=== PATIENT | female | born 1980 | race African-American/Black ===

== ENCOUNTER 2019-10-31 13:00 | Emergency (ER) | payer MEDICARE, MEDICAID, SELFPAY ==
--- NOTE | ~2019-10-31 | US_ITS ---
EXAMINATION: US pelvic complete w TV DATE: 10/31/2019 14:03 INDICATION: Vaginal bleeding TECHNIQUE: Multiple transabdominal and endovaginal sonographic images of the pelvis were obtained. COMPARISON: 05/11/2014 FINDINGS: The uterus measures 8.6 x 6 x 4.6 cm and contains multiple fibroids. The largest is an isoe choic intramural fibroid measuring 2.7 cm. The endometrial complex measures 7 mm. The left ovary is n ot visualized however no left adnexal abnormality is seen. The right ovary measures 2.7 x 1.7 x 1.1 c m. There is normal vascular flow in the right ovary. There is no free fluid in the pelvis. IMPRESSION: 1. No sonographic correlate for the patient's symptoms. Uterine fibroids. Reviewed, dictated and finalized at [facility].
--- NOTE | 2019-10-31 13:09 | ED.FEMALEGU ---
HPI - Female Genitourinary General Chief complaint: RESIDENTIAL SALES Stated complaint: vaginal bleeding Time Seen by Provider: 10/31/19 13:02 Source: RN notes reviewed and old records reviewed History of Present Illness HPI Narrative: Patient presents emergency department from home for vaginal bleeding. Patient states that this morning she had one episode of vaginal bleeding. She states that she has had no other bleeding since that time. She states her last menstrual cycle was approximately 10 years ago after she had had a ablation done by Dr. Roberto. Patient also states she has a history of left ovary removal. She denies any blood with urination denies any fevers or chills abdominal pain or any other symptoms Related Data Allergies Allergy/AdvReac Type Severity Reaction Status Date / Time chocolate flavor Allergy Unknown Unknown Verified 10/31/19 13:13 codeine Allergy Unknown Unknown Verified 10/31/19 13:13 CHOCOLATE Allergy Unknown MOUTH Uncoded 10/31/19 13:13 PATI Review of Systems Review of Systems: Narrative: Gen.: Denies fevers or chills ENT: Denies congestion Respiratory: Denies shortness of breath or cough CV: Denies chest pain or palpitations GI: Denies abdominal pain nausea, emesis or diarrhea see HPI Musculoskeletal: Denies back pain or muscle pain Neuro: Denies numbness, tingling, weakness or focal weakness Skin: Denies rash Except as documented, all other systems reviewed and negative [facility] Past Medical History Medical History (Updated 10/31/19 @ 14:47 by Ted Rosa DO) Multiple sclerosis Surgical History Surgical History (Updated 10/31/19 @ 13:11 by Ted Rosa DO) History of left oophorectomy Social History Social History Smoking status: Never smoker Alcohol intake: current Exam Narrative: Exam Narrative: APPEARANCE: No acute distress, nontoxic, resting in bed EYES: EOMI HEENT: Normocephalic, atraumatic, OMM RESPIRATORY: No respiratory distress Clear to auscultation bilaterally with no rhonchi wheezing or rales. CARDIOVASCULAR: Regular rate and rhythm without murmurs rubs or gallops. ABDOMINAL: Soft, nontender, nondistended, no rebound or guarding : Normal external exam, minimal amount of dark maroon blood in vaginal canal, cervix closed no adnexal tenderness no cervical motion tenderness MUSCULOSKELETAl: Moves all extremities. No clubbing, cyanosis or edema. NEURO: Awake and alert. Following commands, speech normal, no focal deficits SKIN:: Warm, dry. No rashes lesions or abrasions PSYCHIATRIC: Normal affect/mood, Course Course Emergency Course: Discussed with Dr. Leyva presentation work-up. Agrees with plan for discharge to follow-up as an outpatient Discussed with patient results of workup and diagnosis. Discussed need for follow-up with primary care, proper use of medication, and reasons to return to the emergency department. Patient understands and agrees to current treatment plan Vital Signs Vital signs: Vital Signs Temperature 98.7 F 10/31/19 13:10 Pulse Rate 92 10/31/19 13:10 Respiratory Rate 20 10/31/19 13:10 Blood Pressure 127/79 10/31/19 13:10 Pulse Oximetry 99 10/31/19 13:10 Temperature 98.7 F 10/31/19 13:10 Pulse Rate 92 10/31/19 13:10 Respiratory Rate 20 10/31/19 13:10 Blood Pressure 127/79 10/31/19 13:10 Pulse Oximetry 99 10/31/19 13:10 MDM - Female Genitourinary Lab Data Result diagrams: 10/31/19 13:14 10/31/19 13:14 Labs: Lab Results 10/31/19 10/31/19 10/31/19 Range/Units 13:14 13:14 13:14 WBC 9.3 (4.5-10.0) K/mm3 RBC 5.23 (4.2-5.4) M/mm3 Hgb 13.3 (12.0-15.0) g/dL Hct 41.8 (37.0-47.0) % MCV 79.9 L (80-100) fl MCH 25.4 L (26-34) pg MCHC 31.8 L (32-36) g/dl RDW 14.2 (11.5-14.5) % Plt Count 252 (150-375) k/mm3 MPV 10.6 H (7.4-10.4) fl Immature Gran % (Auto) 0.3 (0-
[2019-10-31 13:10] VITALS: BP 127/79; PULSE 92; RESP 20; TEMP 37.1; O2SAT 99
[2019-10-31 13:27] LABS: Basophils Absolute Auto 0.1 K/mm3 (0.0-0.1); Eosinophils Absolute Auto 0.2 K/mm3 (0-0.3); Eosinophils Percent Auto 1.9 % (0-4.4); Hematocrit 41.8 % (37.0-47.0); Hemoglobin 13.3 g/dL (12.0-15.0); Immature Granulocyte Absolute 0.03 K/mm3 (0.00-0.031); Immature Granulocyte Percent A 0.3 % (0-0.5); Lymphocytes Absolute Auto 2.28 K/mm3 (0.9-3.2); Lymphocytes Percent Auto 24.6 % (18.3-44.2); Mean Corpuscular HGB Conc 31.8 g/dl (32-36); Mean Corpuscular Hemoglobin 25.4 pg (26-34); Mean Corpuscular Volume 79.9 fl (80-100); Mean Platelet Volume 10.6 fl (7.4-10.4); Monocytes Absolute Auto 1.8 K/mm3 (0.1-0.6); Monocytes Percent Auto 19.7 % (2.6-8.5); Neutrophils Absolute Auto 4.9 K/mm3 (1.3-6.7); Neutrophils Percent Auto 52.5 % (45.5-73.1); Platelet Count Result 252 k/mm3 (150-375); Red Blood Count 5.23 M/mm3 (4.2-5.4); Red Cell Distribution Width 14.2 % (11.5-14.5); White Blood Count 9.3 K/mm3 (4.5-10.0)
[2019-10-31 13:34] LABS: Add Urine Microscopic? YES; Appearance Urine Clear (Clear); Bacteria Urine Trace /hpf; Bilirubin Urine Negative (Negative); Blood Urine Negative (Negative); Color Urine Yellow (Yellow); Glucose Urine UA Negative (Negative); Ketones Urine Negative (Negative); Leukocyte Esterase Ur Negative LEU/UL (Negative); Mucus Urine Rare /lpf; Nitrate Urine Positive (Negative); Protein Urine Negative (Negative); Specific Grav Ur 1.017 (1.001-1.035); Squamous Epithelial Cell Urine Rare /hpf (Few); Urobilinogen Urine Negative mg/dL (<2.0); WBC Urine 0-3 /hpf
[2019-10-31 13:45] LABS: Blood Urea Nitrogen 14 mg/dL (7-17); Carbon Dioxide 21 mmol/L (22-30); Chloride 107 mmol/L (98-107); Estimated CRCL calculation 126 ml/min; Estimated Glomerular Filt Rate > 60; Glucose 80 mg/dL (65-105); Sodium 139 mmol/L (137-145)
[2019-10-31 14:53] VITALS: BP 128/76; PULSE 93; RESP 16; O2SAT 98
== END 2019-10-31 14:53 | disposition home or self-care (01) ==
PROVIDERS: Emergency Provider Emergency Medicine; PCP Family Medicine
DX: N93.8 Other specified abnormal uterine and vaginal bleeding (principal); D25.9 Leiomyoma of uterus, unspecified; G35 Multiple sclerosis
CPT/HCPCS: 36415; 51701; 76830; 76856; 80048; 81001; 81025; 85025; 99284

== ENCOUNTER 2020-01-05 18:29 | Emergency (ER) | payer MEDICARE, MEDICAID, SELFPAY ==
[2020-01-05 18:32] VITALS: BP 148/74; PULSE 97; RESP 20; TEMP 36.7; O2SAT 99
[2020-01-05] MEDS: TETANUS,DIPHTHERIA,AC PERTUSSIS ADULT (0.5 ML) BOOSTRIX IM (18:47)
--- NOTE | 2020-01-05 19:24 | ED.GENADULT ---
HPI - General Adult General Chief complaint: Wound/Laceration Stated complaint: laceration fingers Time Seen by Provider: 01/05/20 18:31 Source: patient Mode of arrival: ambulatory Limitations: no limitations History of Present Illness HPI narrative: Patient is a 39-year-old female who presents with laceration to the left middle digit that occurred just prior to arrival patient notes that her tetanus is not up-to-date patient notes minimal pain worse with activity and movement denies radicular symptoms or paresthesias laceration occurred just prior to arrival while throwing away piece of glass Related Data Home Medications Medication Instructions Recorded Confirmed No Home Medications 01/05/20 01/05/20 Allergies Allergy/AdvReac Type Severity Reaction Status Date / Time chocolate flavor Allergy Unknown Unknown Verified 10/31/19 13:13 codeine Allergy Unknown Unknown Verified 10/31/19 13:13 CHOCOLATE Allergy Unknown MOUTH Uncoded 10/31/19 13:13 SWELLS Review of Systems Review of Systems: All systems reviewed & are unremarkable except as noted in HPI and below PMFSH Past Medical History Medical History Multiple sclerosis Surgical History Surgical History History of left oophorectomy Social History Social History Smoking status: Never smoker Alcohol intake: current Exam Narrative: Exam Narrative: GENERAL: Well-appearing, well-nourished, and in no acute distress. HEAD: Normocephalic, atraumatic. EYES: PERRLA and EOMI. ENT: Nares clear, no rhinorrhea or epistaxis. Mucous membranes moist. EXTREMITIES: Normal range of motion. No edema. SKIN: Warm, dry, no rash. 1.5 cm irregular flap laceration of the palmar aspect of the mid left mid digit NEURO: No focal deficits. Alert and oriented x3. PSYCH: Normal mood and affect. Course Vital Signs Vital signs: Vital Signs Temperature 98.0 F 01/05/20 18:32 Pulse Rate 97 01/05/20 18:32 Respiratory Rate 20 01/05/20 18:32 Blood Pressure 148/74 H 01/05/20 18:32 Pulse Oximetry 99 01/05/20 18:32 Temperature 98.0 F 01/05/20 18:32 Pulse Rate 97 01/05/20 18:32 Respiratory Rate 20 01/05/20 18:32 Blood Pressure 148/74 H 01/05/20 18:32 Pulse Oximetry 99 01/05/20 18:32 Procedures Laceration Laceration 1: Date: 01/05/20 Time: 20:05 Site: upper extremity Side (If applicable): left Size (cm): 1.5 Description: flap and irregular Depth: simple, single layer Local Anesthetic: lidocaine 1% Pre-repair: wound explored and irrigated ====== Skin Level ====== Skin layer closed with: prolene Size (cm): 5-0 Number of sutures: 4 ====== Subcutaneous Layer ====== ====== Muscle Layer ====== ====== Tendon Layer ====== Dressing: Antibiotic ointment 4 x 4 and Coban placed post procedure Neurovascularly intact pre-and post procedure Medical Decision Making MDM Narrative Medical decision making narrative: Patients injury or pain is consistent with musculoskeletal etiology. No signs of neurological or vascular compromise on exam. Compartments and tisues are soft without signs of compartment syndrome. Pain is felt appropriate for further evaluation on an outpatient basis. Provided with reasons to return Vital Signs Vital Signs: Vital Signs Temperature 98.0 F 01/05/20 18:32 Pulse Rate 97 01/05/20 18:32 Respiratory Rate 20 01/05/20 18:32 Blood Pressure 148/74 H 01/05/20 18:32 Pulse Oximetry 99 01/05/20 18:32 Temperature 98.0 F 01/05/20 18:32 Pulse Rate 97 01/05/20 18:32 Respiratory Rate 20 01/05/20 18:32 Blood Pressure 148/74 H 01/05/20 18:32 Pulse Oximetry 99 01/05/20 18:32 Discharge Plan Discharge Clinical Impression: Lacerati
[2020-01-05 20:22] VITALS: BP 132/75; PULSE 88; RESP 19; O2SAT 100
== END 2020-01-05 20:23 | disposition home or self-care (01) ==
PROVIDERS: Emergency Provider Emergency Medicine; PCP Family Medicine
DX: S61.213A Laceration without foreign body of left middle finger without damage to nail, initial encounter (principal); G35 Multiple sclerosis; Z23 Encounter for immunization; W25.XXXA Contact with sharp glass, initial encounter
CPT/HCPCS: 12001; 90471; 90715; 99282

== ENCOUNTER 2021-01-15 20:01 | Emergency (ER) | payer MEDICARE, MEDICAID, SELFPAY ==
--- NOTE | 2021-01-15 21:00 | PC.NURSE ---
Pt. called twice for triage. no answer
== END 2021-01-15 21:21 | disposition left against medical advice (07) ==
PROVIDERS: PCP Family Medicine
DX: Z53.21 Procedure and treatment not carried out due to patient leaving prior to being seen by health care provider (principal)
CPT/HCPCS: 99199

== ENCOUNTER 2021-09-11 21:47 | Emergency (ER) | payer MEDICARE, MEDICAID, SELFPAY ==
[2021-09-11 21:50] VITALS: BP 141/83; PULSE 79; RESP 16; TEMP 36.5; O2SAT 100
--- NOTE | 2021-09-11 22:56 | ED.DENTAL ---
HPI - Dental/Oral General Chief complaint: Skin/Abscess/Foreign Body Stated complaint: dental Time Seen by Provider: 09/11/21 22:11 Source: patient Mode of arrival: ambulatory Limitations: no limitations History of Present Illness HPI Narrative: 41-year-old female with complaints of dental pain to area around tooth 30. Patient states she noticed the pain this morning. Has tried ibuprofen without relief. Patient denies any purulent drainage, difficulty swallowing, shortness of breath, or fevers. Related Data Allergies Allergy/AdvReac Type Severity Reaction Status Date / Time chocolate flavor Allergy Unknown Unknown Verified 09/11/21 21:53 codeine Allergy Unknown Unknown Verified 09/11/21 21:53 CHOCOLATE Allergy Unknown MOUTH Uncoded 09/11/21 22:13 PATI Review of Systems Review of Systems: CONSTITUTIONAL: Denies fever, chills, or sweats. EYES: Denies visual changes, redness, or discharge. ENT: Pain and swelling to tooth 30. Denies rhinorrhea, congestion, sore throat, or otalgia. CARDIOVASCULAR: Denies chest pain, palpitations, or edema. RESPIRATORY: Denies cough or dyspnea. GASTROINTESTINAL: Denies abdominal pain, nausea, vomiting, or diarrhea. GENITOURINARY: Denies dysuria or hematuria. SKIN: Denies rash or itching. MUSCULOSKELETAL: Denies back pain, joint pain, or myalgia. NEUROLOGIC: Denies headache, numbness, dizziness, or weakness. PSYCHIATRIC: Denies anxiety or depression. PMFSH Past Medical History Medical History Multiple sclerosis Surgical History Surgical History History of left oophorectomy Social History Social History Smoking status: Never smoker Alcohol intake: current Exam Narrative: GENERAL: Well-appearing, well-nourished, and in no acute distress. HEAD: Normocephalic, atraumatic. EYES: PERRLA and EOMI. ENT: Nares clear, no rhinorrhea or epistaxis. Mucous membranes moist. Oropharynx without tonsillar hypertrophy exudate or other lesions. Bilateral TMs pearly bowen nonbulging. Tooth 30 with gum swelling, no drainage noted, and tenderness. NECK: Supple. No adenopathy or masses. No carotid bruits or JVD CHEST: Clear to auscultation. No respiratory distress. No wheezes rales or rhonchi HEART: Regular rate and rhythm. No murmur heard. Normal peripheral pulses. ABDOMEN: Soft, nontender, nondistended, normal active bowel sounds. EXTREMITIES: Normal range of motion. No edema. SKIN: Warm, dry, no rash. NEURO: No focal deficits. Alert and oriented x3. PSYCH: Normal mood and affect. Course Vital Signs Vital signs: Vital Signs Temperature 36.5 C 09/11/21 21:50 Pulse Rate 79 09/11/21 21:50 Respiratory Rate 16 09/11/21 21:50 Blood Pressure 141/83 H 09/11/21 21:50 Pulse Oximetry 100 09/11/21 21:50 Temperature 36.5 C 09/11/21 21:50 Pulse Rate 79 09/11/21 21:50 Respiratory Rate 16 09/11/21 21:50 Blood Pressure 141/83 H 09/11/21 21:50 Pulse Oximetry 100 09/11/21 21:50 MDM - Dental/Oral Differential Diagnosis Differential diagnosis: Likely gingival abscess, dental caries, toothache and dental abscess Medical Records Attestation: I reviewed the patient's medical records. Discharge Plan Discharge Clinical Impression: Dental abscess Patient Disposition: Home, Self-Care Condition: Stable Instructions: Antibiotic Form Additional Instructions: take medication as prescrived. Use ibuprofen 800 mg every 8 hours as needed for pain. follow up with dentist. Prescriptions: New penicillin V potassium 500 mg tablet 500 mg PO Q6H 10 Days Qty: 40 RF: 0 Follow-up/Referrals: PHYSICIAN NOT ON STAFF,NONSTAFF [Non-Staff] - 3 Days Time of Disposition: 23:20
[2021-09-11] MEDS: PENICILLIN V POTASSIUM 250 MG TABLET 500 MG PO (23:27)
[2021-09-11] MEDS: KETOROLAC (*BKC) 60 MG/2 ML VIAL IM (23:32)
== END 2021-09-11 23:47 | disposition home or self-care (01) ==
LOC: ANHED 23:42
PROVIDERS: Emergency Provider Nurse Practitioner Family
DX: K04.7 Periapical abscess without sinus (principal); G35 Multiple sclerosis
CPT/HCPCS: 96372; 99283; A9270; J1885

== ENCOUNTER 2021-12-23 06:13 | Emergency (ER) | payer MEDICARE, MEDICAID, SELFPAY ==
[2021-12-23 06:28] VITALS: BP 123/90; PULSE 88; RESP 20; TEMP 36.7; O2SAT 97
--- NOTE | 2021-12-23 07:47 | ED.GENADULT ---
HPI - General Adult General Chief complaint: Anxiety Stated complaint: anxiety Time Seen by Provider: 12/23/21 06:50 History of Present Illness HPI narrative: 41-year-old female presenting to the emergency department for evaluation of dental pain for the last few days and worsening anxiety. Patient states the dental pain has been worsening over the last few days. Patient indicates her lower front teeth as the source of the pain. Patient reports that she had previously been taking medications for anxiety be due to moving and no longer having a primary care physician that she stopped taking medications for anxiety. Patient did request information for a primary care physician for follow-up. Patient denies any homicidal or suicidal ideation Related Data Allergies Allergy/AdvReac Type Severity Reaction Status Date / Time chocolate flavor Allergy Unknown Unknown Verified 12/23/21 06:34 codeine Allergy Unknown Unknown Verified 12/23/21 06:34 Penicillins Allergy Other Verified 12/23/21 06:34 CHOCOLATE Allergy Unknown MOUTH Uncoded 09/11/21 22:13 SWELLS Review of Systems Review of Systems: CONSTITUTIONAL: Denies fever, chills, or sweats. EYES: Denies visual changes, redness, or discharge. ENT: Dental pain CARDIOVASCULAR: Denies chest pain, palpitations, or edema. RESPIRATORY: Denies cough or dyspnea. GASTROINTESTINAL: Denies abdominal pain, nausea, vomiting, or diarrhea. GENITOURINARY: Denies dysuria or hematuria. SKIN: Denies rash or itching. MUSCULOSKELETAL: Denies back pain, joint pain, or myalgia. NEUROLOGIC: Denies headache, numbness, or weakness. PSYCHIATRIC: See HPI PMFSH Past Medical History Medical History Multiple sclerosis Surgical History Surgical History History of left oophorectomy Social History Social History Smoking status: Never smoker Alcohol intake: current Substance use type: marijuana Exam Narrative: APPEARANCE: Well appearing, no pain, no distress, well-nourished. HEAD: normocephalic, atraumatic. Irritation of the gums on front incisors EYES: PERRLA/EOMI, conjunctivae clear. NOSE: Normal no drainage THROAT: Pharynx clear, no exudate. NECK: Supple. No adenopathy, no masses. RESPIRATORY: Airway patent, respirations nonlabored. Clear to auscultation bilaterally, no rales, rhonchi, wheezing. CARDIOVASCULAR: Regular rate and rhythm without murmurs rubs or gallops. NEURO: Alert. Cranial nerves II through XII intact. Grossly intact SKIN: Warm, dry. Normal Color PSYCHIATRIC: Anxious affect Course Vital Signs Vital signs: Vital Signs Temperature 98.0 F 12/23/21 06:28 Pulse Rate 88 12/23/21 06:28 Respiratory Rate 20 12/23/21 06:28 Blood Pressure 123/90 12/23/21 06:28 Pulse Oximetry 97 12/23/21 06:28 Oxygen Delivery Room Air 12/23/21 06:28 Temperature 98.0 F 12/23/21 06:28 Pulse Rate 88 12/23/21 06:28 Respiratory Rate 20 12/23/21 06:28 Blood Pressure 123/90 12/23/21 06:28 Pulse Oximetry 97 12/23/21 06:28 Oxygen Delivery Room Air 12/23/21 06:28 Medical Decision Making Vital Signs Vital Signs: Vital Signs Temperature 98.0 F 12/23/21 06:28 Pulse Rate 88 12/23/21 06:28 Respiratory Rate 20 12/23/21 06:28 Blood Pressure 123/90 12/23/21 06:28 Pulse Oximetry 97 12/23/21 06:28 Oxygen Delivery Room Air 12/23/21 06:28 Temperature 98.0 F 12/23/21 06:28 Pulse Rate 88 12/23/21 06:28 Respiratory Rate 20 12/23/21 06:28 Blood Pressure 123/90 12/23/21 06:28 Pulse Oximetry 97 12/23/21 06:28 Oxygen Delivery Room Air 12/23/21 06:28 Discharge Plan Discharge Clinical Impression: Acute anxiety, Pain, dental Patient Disposition: Home, Self-Care Condition: Stable Instructions: Antibiotic Form, Toothache (ED), Anxiety (ED) Additional
== END 2021-12-23 08:20 | disposition home or self-care (01) ==
PROVIDERS: Emergency Provider Emergency Medicine
DX: K08.89 Other specified disorders of teeth and supporting structures (principal); F41.9 Anxiety disorder, unspecified; G35 Multiple sclerosis; Z90.721 Acquired absence of ovaries, unilateral
CPT/HCPCS: 99283

== ENCOUNTER 2022-01-06 21:48 | Emergency (ER) | payer MEDICARE, SELFPAY ==
[2022-01-06] VITALS (12 sets, daily range): BP systolic 112–135; BP diastolic 88–97; PULSE 72–95; RESP 16–23; TEMP 36.5; O2SAT 98–100
--- NOTE | ~2022-01-06 | CT_ITS ---
EXAMINATION: CT abdomen pelvis w con DATE: 01/07/2022 00:06 INDICATION: Abdominal pain, nausea and vomiting TECHNIQUE: Computed tomography (CT) of the abdomen and pelvis was performed with 100 CC Omnipaque 300 intravenous contrast. Automated exposure control and iterative reconstruction technique were employe d. Exam dose: 189.09 mGy-cm total exam DLP. COMPARISON: 10/31/2019 pelvic ultrasound 05/15/2013 CT abdomen pelvis FINDINGS: There is mild discoid atelectasis or scarring of the middle lobe and minimal dependent bila teral lower lobe atelectasis. Normal heart size. No pericardial or pleural effusion. The liver, gallbladder, bile ducts, pancreas, pancreatic duct and spleen are unremarkable. Normal morphology of the adrenal glands. Approximately 1.3 cm lower pole left renal cyst. Occasional right renal cysts measuring up to 5 mm. Normal caliber of the abdominal aorta. No intraperitoneal or retroperitoneal or pelvic mass lesion or adenopathy or ascites. Multiple uterine fibroids, measuring up to 2.3 cm diameter. The urinary bladder is unremarkable. There is thickening of the wall of the gastric antrum; which may be related to gastritis or peptic ul cer disease; consider endoscopic correlation. Normal appendix. No bowel obstruction or intraperitoneal free air. Small fat-containing umbilical hernia. Included skeletal structures are unremarkable. IMPRESSION: Thickening of the wall of the gastric antrum; differential diagnosis includes gastritis o r peptic ulcer disease; consider endoscopic correlation. Normal appendix Multiple uterine fibroids Bilateral renal cysts Reviewed, dictated and finalized at [facility]. Reviewed, dictated and finalized at [facility]. IMPRESSION: Thickening of the wall of the gastric antrum; differential diagnosi s includes gastritis or peptic ulcer disease; consider endoscopic correlation. Normal appendix Multiple uterine fibroids Bilateral renal cysts
--- NOTE | 2022-01-06 22:15 | ED.NAVMDI ---
HPI - Nausea/Vomiting/Diarrhea General Chief complaint: Nausea/Vomiting/Diarrhea <SWETHA Martin Last Filed: 01/07/22 01:09> Stated complaint: emesis x1 <SWETHA Martin Last Filed: 01/07/22 01:09> Time Seen by Provider: 01/06/22 21:53 <SWETHA Martin Last Filed: 01/07/22 01:09> Source: patient <Gertrude SWETHA Corcoran Last Filed: 01/07/22 01:09> Mode of arrival: EMS <SWETHA Martin Last Filed: 01/07/22 01:09> Limitations: no limitations <SWETHA Martin Last Filed: 01/07/22 01:09> History of Present Illness HPI Narrative: This is a 41-year-old female that presents to the emergency department for nausea vomiting. Reports several episodes of nausea and vomiting today. Also reports some diarrhea. Reports intermittent fevers. Denies hematochezia or dysuria. <SWETHA Martin Last Filed: 01/07/22 01:09> Related Data Allergies/Adverse reactions: Allergies Allergy/AdvReac Type Severity Reaction Status Date / Time chocolate flavor Allergy Unknown Unknown Verified 12/23/21 06:34 codeine Allergy Unknown Unknown Verified 12/23/21 06:34 Penicillins Allergy Other Verified 12/23/21 06:34 CHOCOLATE Allergy Unknown MOUTH Uncoded 09/11/21 22:13 SWELLS <SWETHA Martin Last Filed: 01/07/22 01:09> Review of Systems Review of Systems: CONSTITUTIONAL: Reports fever GASTROINTESTINAL: Reports abdominal pain, nausea, vomiting, and diarrhea. GENITOURINARY: Denies dysuria <SWETHA Martin Last Filed: 01/07/22 01:09> All systems reviewed & are unremarkable except as noted in HPI and below <SWETHA Martin Last Filed: 01/07/22 01:09> PMFSH Past Medical History Medical History: Medical History Multiple sclerosis <Gertrude Humphreys PA-C - Last Filed: 01/07/22 01:09> Surgical History Surgical History: Surgical History History of left oophorectomy <Gertrude Humphreys PA-C - Last Filed: 01/07/22 01:09> Social History Social History: Social History Smoking status: Never smoker Alcohol intake: current Substance use type: marijuana <Gertrude Humphreys PA-C - Last Filed: 01/07/22 01:09> Exam Narrative: GENERAL: Well-appearing, well-nourished, and in no acute distress. HEAD: Normocephalic, atraumatic. EYES: EOMI. CHEST: Clear to auscultation. No respiratory distress. No wheezes rales or rhonchi HEART: Regular rate and rhythm. No murmur heard. Normal peripheral pulses. ABDOMEN: Soft, nondistended, normal active bowel sounds. Mild tenderness to palpation in the epigastrium, without guarding. No CVA tenderness EXTREMITIES: Normal range of motion. No edema. SKIN: Warm, dry, no rash. NEURO: No focal deficits. Alert and oriented x3. PSYCH: Normal mood and affect <Gertrude Humphreys PA-C - Last Filed: 01/07/22 01:09> Course CONSUMER LOAN PROCESSOR/PA Physician Supervision For this patient encounter, I reviewed the CONSUMER LOAN PROCESSOR or PA documentation, treatment plan, and medical decision making <Garett Aguilera MD - Last Filed: 01/07/22 04:11> Vital Signs Vital signs: Vital Signs Temperature 97.7 F 01/06/22 21:51 Pulse Rate 95 01/06/22 21:51 Respiratory Rate 18 01/06/22 21:51 Blood Pressure 121/91 H 01/06/22 21:51 Pulse Oximetry 100 01/06/22 21:51 Oxygen Delivery Room Air 01/06/22 21:51 Temperature 97.7 F 01/06/22 21:51 Pulse Rate 74 01/07/22 01:22 Respiratory Rate 12 01/07/22 01:22 Blood Pressure 127/93 H 01/07/22 01:22 Pulse Oximetry 100 01/07/22 01:22 Oxygen Delivery Room Air 01/06/22 21:51 <Gertrude Humphreys PA-C - Last Filed: 01/07/22 01:09> Vital Signs Temperature 97.7 F 01/06/22 21:51 Pulse Rate 95 01/06/22 21:51 Respiratory Rate 18 01/06/22 21:51 Blood Pressure 121/91 H 01/06
[2022-01-06] MEDS: ONDANSETRON INJ 4 MG/2 ML VIAL IV PUSH (22:29)
[2022-01-06] MEDS: SODIUM CHLORIDE 0.9% IV 1,000 ML 999 ML IV CONT (22:29)
[2022-01-06] MEDS: FAMOTIDINE 20 MG/2 ML VIAL IV PUSH (22:29)
[2022-01-06 22:43] LABS: Basophils Absolute Auto 0.1 K/mm3 (0.0-0.1); Basophils Percent Auto 0.8 % (0.2-1.2); Eosinophils Absolute Auto 0.2 K/mm3 (0-0.3); Eosinophils Percent Auto 2.5 % (0-4.4); Hematocrit 38.1 % (37.0-47.0); Hemoglobin 12.2 g/dL (12.0-15.0); Immature Granulocyte Absolute 0.02 K/mm3 (0.00-0.031); Immature Granulocyte Percent A 0.3 % (0-0.5); Lymphocytes Absolute Auto 2.36 K/mm3 (0.9-3.2); Lymphocytes Percent Auto 31.6 % (18.3-44.2); Mean Corpuscular Hemoglobin 25.2 pg (26-34); Mean Corpuscular Volume 78.7 fl (80-100); Mean Platelet Volume 10.3 fl (7.4-10.4); Monocytes Absolute Auto 1.3 K/mm3 (0.1-0.6); Monocytes Percent Auto 17.4 % (2.6-8.5); Neutrophils Absolute Auto 3.6 K/mm3 (1.3-6.7); Neutrophils Percent Auto 47.4 % (45.5-73.1); Platelet Count Result 234 k/mm3 (150-375); Red Blood Count 4.84 M/mm3 (4.2-5.4); Red Cell Distribution Width 14.2 % (11.5-14.5); White Blood Count 7.5 K/mm3 (4.5-10.0)
[2022-01-06 22:52] LABS: Alanine Aminotransferase 18 U/L (6-35); Albumin Level 3.9 g/dL (3.5-5.1); Alkaline Phosphatase 51 U/L (38-126); Anion Gap 10 mmol/L (8-16); Aspartate Amino Transferase 26 U/L (14-36); Bilirubin,Total 0.1 mg/dL (0.2-1.3); Blood Urea Nitrogen 9 mg/dL (7-17); Calcium 8.3 mg/dL (8.4-10.2); Carbon Dioxide 21 mmol/L (22-30); Chloride 109 mmol/L (98-107); Estimated CRCL calculation 86 ml/min; Estimated Glomerular Filt Rate > 60; Glucose 93 mg/dL (65-110); Lipase 49 U/L (23-300); Potassium 3.6 mmol/L (3.4-5.0); Sodium 140 mmol/L (137-145)
[2022-01-06 23:37] LABS: Appearance Urine Clear (Clear); Bilirubin Urine Negative (Negative); Blood Urine Negative (Negative); Color Urine Yellow (Yellow); Glucose Urine UA Negative (Negative); Ketones Urine Negative (Negative); Leukocyte Esterase Ur 2+ LEU/UL (Negative); Nitrate Urine Negative (Negative); Protein Urine Negative (Negative); Specific Grav Ur 1.015 (1.001-1.035); Urobilinogen Urine 0.2 mg/dL (<2.0)
[2022-01-06 23:43] LABS: Bacteria Urine Trace /hpf; Mucus Urine Rare /lpf; RBC Urine 0-2 /hpf (0-2); Squamous Epithelial Cell Urine Few /hpf (Few)
[2022-01-06 23:44] LABS: Add Urine Microscopic? YES
--- NOTE | 2022-01-06 23:52 | PC.NURSE ---
Patient taken to CT via stretcher.
[2022-01-07] VITALS (7 sets, daily range): BP systolic 121–127; BP diastolic 91–93; PULSE 74; RESP 12; O2SAT 98–100
[2022-01-07 00:22] LABS: Influenza A QL RT-PCR Negative (Negative); Influenza B QL RT-PCR Negative (Negative); SARS-CoV-2 RNA PCR Negative
[2022-01-07] MEDS: LORazepam (*CRX) 0.5 MG TABLET PO (01:23)
== END 2022-01-07 01:32 | disposition home or self-care (01) ==
PROVIDERS: Physician Assistant; Emergency Provider Emergency Medicine
DX: K29.00 Acute gastritis without bleeding (principal); Z20.822 Contact with and (suspected) exposure to COVID-19; G35 Multiple sclerosis; R82.998 Other abnormal findings in urine
CPT/HCPCS: 36415; 74177; 80053; 81001; 81025; 83690; 85025; 87086; 87088; 87502; 96361; 96374; 96375; 99284; A9270; C9803; J2405; J7030; Q9967; U0003; U0005

== ENCOUNTER 2022-01-19 12:55 | Emergency (ER) | payer MEDICARE, SELFPAY ==
[2022-01-19 12:58] VITALS: BP 113/84; PULSE 103; RESP 16; TEMP 36.7; O2SAT 97
--- NOTE | 2022-01-19 13:34 | PC.NURSE ---
received case number from [facility] [id number]
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
[2022-01-19 15:08] LABS: Alanine Aminotransferase 20 U/L (6-35); Albumin Level 4.4 g/dL (3.5-5.1); Alkaline Phosphatase 52 U/L (38-126); Anion Gap 8 mmol/L (8-16); Aspartate Amino Transferase 26 U/L (14-36); Bilirubin,Total 0.2 mg/dL (0.2-1.3); Blood Urea Nitrogen 13 mg/dL (7-17); Calcium 8.9 mg/dL (8.4-10.2); Carbon Dioxide 25 mmol/L (22-30); Chloride 107 mmol/L (98-107); Estimated CRCL calculation 81 ml/min; Estimated Glomerular Filt Rate > 60; Glucose 92 mg/dL (65-110); Potassium 4.2 mmol/L (3.4-5.0); Sodium 140 mmol/L (137-145)
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
--- NOTE | 2022-01-19 16:07 | PC.NURSE ---
no shelters available at this time. [facility] is attempting to get a hotel room for the night. still in progress
[2022-01-19 16:37] LABS: Appearance Urine Clear (Clear); Bilirubin Urine Negative (Negative); Blood Urine Negative (Negative); Glucose Urine UA Negative (Negative); Ketones Urine Negative (Negative); Leukocyte Esterase Ur Negative LEU/UL (Negative); Nitrate Urine Negative (Negative); Protein Urine Negative (Negative); Urobilinogen Urine 0.2 mg/dL (<2.0); pH Urine 6.5 (5.0-9.0)
[2022-01-19 16:42] LABS: Add Urine Microscopic? NO; Color Urine Light Yellow (Yellow)
[2022-01-19] MEDS: AZITHROMYCIN 250 MG TABLET 1000 MG PO (16:57)
[2022-01-19] MEDS: metroNIDAZOLE 250 MG TABLET 500 MG PO (16:59)
[2022-01-19] MEDS: levonorgestreL 1.5 MG TABLET PO (16:59)
[2022-01-19] MEDS: ONDANSETRON HCL ODT 4 MG TABLET PO (17:00)
[2022-01-19] MEDS: LIDOCAINE HCL 1% LOCAL INJ 20 ML VIAL 2.1 ML XX (17:01)
[2022-01-19] MEDS: cefTRIAXone 1 GM VIAL 0.5 GM IM (17:01)
[2022-01-19 18:08] VITALS: BP 114/74; PULSE 99; RESP 20; TEMP 36.7; O2SAT 99
[2022-01-19 18:08] LABS: HIV 1/2 Ab P24 Ag Result Reactive (Negative)
[2022-01-19 18:10] LABS: HIVc Retest 2 0.89
[2022-01-21 07:33] LABS: Rapid Plasma Reagin Non-Reactive (NonReactive)
[2022-01-22 18:06] LABS: HIV 1 RNA PCR Not Detected Copies/mL; HIV 1 RNA PCR Not Detected Log cps/mL
[2022-01-23 16:27] LABS: HIV DNA PCR (Qual) Not Detected (Not Detected)
== END 2022-01-19 18:18 | disposition home or self-care (01) ==
LOC: ANHED 17:30
PROVIDERS: Emergency Provider Preventive Medicine Aerospace Medicine
DX: Z04.41 Encounter for examination and observation following alleged adult rape (principal); A59.9 Trichomoniasis, unspecified; Z11.4 Encounter for screening for human immunodeficiency virus [HIV]; G35 Multiple sclerosis; Z90.721 Acquired absence of ovaries, unilateral
CPT/HCPCS: 36415; 80053; 81003; 81025; 86592; 86701; 86702; 86703; 87389; 87491; 87535; 87536; 87591; 87808; 87900; 87901; 96372; 99285; A9270; G0432; J0696

== ENCOUNTER 2022-12-08 15:10 | Emergency (ER) | payer MEDICARE, SELFPAY ==
[2022-12-08 15:26] VITALS: BP 127/77; PULSE 106; RESP 18; TEMP 37.7; O2SAT 100
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
[2022-12-08 16:38] LABS: Strep Group A RT-PCR NOT DETECTED (Negative)
[2022-12-08 16:48] LABS: Influenza A QL RT-PCR Negative (Negative); Influenza B QL RT-PCR Negative (Negative); SARS-CoV-2 RNA PCR Negative (Negative)
[2022-12-08] MEDS: IBUPROFEN SUSPENSION 200 MG/10 ML UDC 600 MG PO (16:57)
[2022-12-08 17:31] VITALS: BP 133/87; PULSE 84; TEMP 36.7; O2SAT 100
== END 2022-12-08 17:38 | disposition home or self-care (01) ==
PROVIDERS: Emergency Provider Physician Assistant
DX: J02.8 Acute pharyngitis due to other specified organisms (principal); G35 Multiple sclerosis; F12.90 Cannabis use, unspecified, uncomplicated; Z20.822 Contact with and (suspected) exposure to COVID-19
CPT/HCPCS: 87636; 87651; 96372; 99283; A9270; J1100

== ENCOUNTER 2024-01-02 14:18 | Emergency (ER) | payer MEDICARE, SELFPAY ==
[2024-01-02 14:21] VITALS: BP 125/96; PULSE 110; RESP 20; TEMP 36.6; O2SAT 97
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
[2024-01-02 15:33] LABS: Basophils Absolute Auto 0.1 K/mm3 (0.0-0.1); Basophils Percent Auto 0.9 % (0.2-1.2); Eosinophils Absolute Auto 0.2 K/mm3 (0-0.3); Eosinophils Percent Auto 1.8 % (0-4.4); Hematocrit 42.5 % (37.0-47.0); Hemoglobin 13.8 g/dL (12.0-15.0); Immature Granulocyte Absolute 0.03 K/mm3 (0.00-0.031); Immature Granulocyte Percent A 0.4 % (0-0.5); Lymphocytes Absolute Auto 2.76 K/mm3 (0.9-3.2); Lymphocytes Percent Auto 33.7 % (18.3-44.2); Mean Corpuscular HGB Conc 32.5 g/dl (32-36); Mean Corpuscular Hemoglobin 26.5 pg (26-34); Mean Corpuscular Volume 81.7 fl (80-100); Mean Platelet Volume 9.9 fl (7.4-10.4); Monocytes Absolute Auto 1.5 K/mm3 (0.1-0.6); Monocytes Percent Auto 18.1 % (2.6-8.5); Neutrophils Absolute Auto 3.7 K/mm3 (1.3-6.7); Neutrophils Percent Auto 45.1 % (45.5-73.1); Platelet Count Result 268 k/mm3 (150-375); White Blood Count 8.2 K/mm3 (4.5-10.0)
--- NOTE | 2024-01-02 15:34 | PC.NURSE ---
Addendum entered by Leeann Degroot RN 01/02/24 15:35: Pt ambulated out of the ER with steady gait. Original Note: Pt states she is going to [facility]
[2024-01-02 15:41] LABS: Appearance Urine Clear (Clear); Bacteria Urine 1+ /hpf; Bilirubin Urine Negative (Negative); Blood Urine Negative (Negative); Color Urine Yellow (Yellow); Glucose Urine UA Negative (Negative); Ketones Urine Negative (Negative); Leukocyte Esterase Ur 3+ LEU/UL (Negative); Nitrate Urine Negative (Negative); Non Pathogenic Casts 0-2; Protein Urine Negative (Negative); RBC Urine 0-2 /hpf (0-2); Specific Grav Ur 1.016 (1.001-1.035); Squamous Epithelial Cell Urine Few /hpf (Few); WBC Urine 21-50 /hpf (0-3)
[2024-01-02 15:45] LABS: Alanine Aminotransferase 38 U/L (6-35); Albumin Level 4.4 g/dL (3.5-5.1); Alkaline Phosphatase 65 U/L (38-126); Anion Gap 12 mmol/L (4-12); Aspartate Amino Transferase 43 U/L (14-36); Bilirubin,Total 0.5 mg/dL (0.2-1.3); Blood Urea Nitrogen 14 mg/dL (7-17); Calcium 8.7 mg/dL (8.4-10.2); Carbon Dioxide 22 mmol/L (22-30); Chloride 110 mmol/L (98-107); Estimated CRCL calculation 89 ml/min; Estimated Glomerular Filt Rate > 60; Ethanol 256 mg/dL (<10); Glucose 85 mg/dL (65-110); Potassium 3.7 mmol/L (3.4-5.0); Sodium 144 mmol/L (137-145)
[2024-01-02 15:51] LABS: Add Urine Microscopic? YES
[2024-01-02 15:59] LABS: Amphetamine Screen Urine Negative (Negative); Barbiturate Screen Urine Negative (Negative); Benzodiazepines Screen Urine Negative (Negative); Cannabinoid Screen Urine Negative (Negative); Cocaine Screen Urine Negative (Negative); Methadone Screen Urine Negative (Negative); Opiate Screen Urine Negative (Negative); Phencyclidine Screen Urine Negative (Negative)
== END 2024-01-02 16:00 | disposition left against medical advice (07) ==
LOC: ANHED 15:49
PROVIDERS: Emergency Provider Physician Assistant
DX: R53.1 Weakness (principal); Z11.3 Encounter for screening for infections with a predominantly sexual mode of transmission; G35 Multiple sclerosis
CPT/HCPCS: 36415; 80053; 80307; 81001; 81025; 85025; 87086; 99283

== ENCOUNTER 2024-08-27 19:22 | Emergency (ER) | payer MEDICARE, SELFPAY ==
--- NOTE | ~2024-08-27 | XR_ITS ---
EXAMINATION: XR wrist LT min 3V DATE: 08/27/2024 20:00 INDICATION: Left wrist pain. Fall. TECHNIQUE: 3 views of left wrist were obtained. COMPARISON: None. FINDINGS: Alignment is normal. No fracture. Joint spaces are normal. IMPRESSION: 1. No fracture. Reviewed, dictated and finalized at location A. ONNEL ADVISER IMPRESSION: 1. No fracture.
--- OUTSIDE RECORDS SUMMARY | 2024-08-27 19:24 | XMS_ITS | Clinical Summary ---
Author Organization [facility] Address [address] [place] [address] Phone Care Team Providers Care Floorworker Distributor Name Role Phone No, Physician Primary Care Provider [phone] Allergies Active Allergy Reactions Criticality Noted Date Comments Codeine Unknown 01/30/2024 Meperidine Unknown 01/30/2024 Hydrocodone-Acetaminophen Unknown 01/30/2024 Medications ondansetron (ZOFRAN) 4 mg tabletIndication s:Acute Gastroenteritis- related Vomiting in Pediatrics Take 1 tablet (4 mg total) by mouth every 6 (six) hours 28 tablet 01/30/2024 Active raltegravir (ISENTRESS) 400 mg tabletIndication s:Prevention of HIV Infection after Exposure Take 1 tablet (400 mg total) by mouth 2 (two) times a day for 59 doses 60 tablet 01/30/2024 Active emtricitabine-te nofovir disoproxil fumerate (TRUVADA) 200-300 mg per tabletIndication s:Prevention of HIV Infection after Exposure Take 1 tablet by mouth daily 29 tablet 01/30/2024 Active doxycycline (VIBRAMYCIN) 100 mg capsuleIndicatio ns:Sexually Transmitted Infection Take 1 tablet/caps ule (100 mg total) by mouth 2 (two) times a day 20 capsule 01/30/2024 Active Encounters Date Type Department Care Team Description 08/17/2024 Telephone [facility] Accountable Care Organization [address] [place] [address] Kristyn Palacios MA Unsuccessful Phone Call 1 ([facility]) from Last 3 Months Immunizations Immunization Administration Dates Next Due Tdap 01/05/2020 Social History Tobacco Use Types Packs/Day Years Used Date Smoking Tobacco: Never Assessed Personal Safety Answer Date Recorded Have you ever been in or are you currently in a harmful physical or emotional relationship or is someone making you feel afraid or unsafe? 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 Gender Identity Not on file Sexual Orientation Not on file Obstetrics History Last Filed Vital Signs Vital Sign Reading Time Taken Comments Blood Pressure 136/91 03/01/2024 9:17 PM CDT Pulse 96 03/01/2024 9:17 PM CDT Temperature 36.5 C (97.7 F) 03/01/2024 9:17 PM CDT Respiratory Rate 18 03/01/2024 9:17 PM CDT Oxygen Saturation 97% 03/01/2024 9:17 PM CDT Inhaled Oxygen Concentration - - Weight 49.9 kg (110 lb) 03/01/2024 9:17 PM CDT Height 157.5 cm (5' 2 ) 03/01/2024 9:17 PM CDT Body Mass Index 20.12 03/01/2024 9:17 PM CDT Plan of Treatment Health Maintenance Due Date Last Done Comments Breast Cancer Screening-Mammogram 1978 Cervical Cancer Screening 1978 Colon Cancer Screening-Colonoscopy 1978 Depression Screening 1978 Hepatitis B Screening 1996 Regular Well Visit/Exam 18-64 1996 Covid-19 Vaccine (3 - 2023-2 5 season) 2024 11/24/2020, 11/03/2020 Influenza Vaccine (#1) 2024 DTaP/Tdap/Td Vaccine (2 - Td or Tdap) 01/04/2030 01/05/2020 Hepatitis C Screening Completed 01/30/2024 HPV Vaccines Aged Out No longer eligi ble based on patient's age to complete this topic Pneumococcal vaccine <65 Aged Out No longer eligible based on patient's age to complete this topic Procedures Procedure Name Priority Date/Time Associated Diagnosis Comments HEPATITIS PANEL, ACUTE STAT 01/30/2024 4:24 PM CDT from Last 3 Months or Most Recently Relevant to Health Maintenance Results * Hepatitis panel, acute Blood (01/30/2024 4:24 PM CDT) Hep A IgM Nonreactive Nonreactive Comment: Interpretive Data: If Hep A IgM Ab is reported as Equivocal, a new sample should be drawn in two weeks for testing. Current interpretive data was last revised on 19. Testing performed by: [facility], [address] [place] [address]., [id number] Hep B core IgM Nonreactive Nonreactive Liya FARMER (LUISA) Comment: Interpretive Data If HepB Core IgM Ab is reported as Equivocal, a new sample should be drawn in two weeks for testing. Current interpretive data was last revised on 19. Testing performed by: [facility], [address] [place] [address]., [id number] Hep C Ab Nonreactive Nonreactive BASHIR FARMER (LUISA) Comment: Interpretive Data Nonreactive: Antibodies to HCV not detected. Does NOT exclude the possibility of recent exposure to HCV. Equivocal: Equivocal for HCV antibodies. Supplemental molecular testing will be automatically performed to determine infection status in accordance with current CDC screening recommendations. Reactive: Positive for HCV antibodies. This may represent current or past HCV infection. Supplemental molecular testing will be automatically performed to determine current infection status in accordance with current CDC screening recommendations. Interpretive data was last revised on 2019. Testing performed by: [facility], [address] [place] [address]., [id number] HepBsAg Nonreactive Nonreactive BASHIR FARMER (LUISA) Comment:Testing performed by : [address] [id number] Blood 01/30/2024 4:24 PM CDT 01/30/2024 8:38 PM CDT Harish Stoddard MD LAB MICROBIOLOGY - GENERAL ORDERABLES Final Result BASHIR FARMER (LUISA) 1 [facility] [place] [address] from Last 3 Months or Most Recently Relevant to Health Maintenance Insurance MEDICARE [facility]IONS [facility] Care Teams Floorworker Distributor Relationship Specialty Start Date End Date No, Physician PCP - General 03/02/24
--- OUTSIDE RECORDS SUMMARY | 2024-08-27 19:24 | XMS_ITS | Referral Summary ---
Author Organization [facility] Address [address] [place] [address] Phone Care Team Providers Care Lumber Bearer Name Role Phone No, Physician Primary Care Provider [phone] Encounters Date Type Department Care Team Description 08/17/2024 Telephone [facility] Accountable Care Organization [address] [place] [address] Kristyn Palacios MA Unsuccessful Phone Call 1 ([facility]) from Last 3 Months Allergies Active Allergy Reactions Criticality Noted Date [...] times a day 20 capsule 01/30/2024 Active Immunizations Immunization Administration Dates Next Due Tdap [...] on file 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 Testing performed by: [facility], [address] [place] [address], [place]., [id number] Hep B core IgM Nonreactive Nonreactive Liya FARMER (LUISA) Comment: Interpretive Data If HepB Core IgM Ab is reported as Equivocal, a new sample should be drawn in two weeks for testing. Current interpretive data was last revised on 19. Testing performed by: [facility], [address] [place] [address], [place] [id number] Hep C Ab Nonreactive Nonreactive BASHIR FARMER [...] last revised on 2019. Testing performed by: [facility], [address] [place] [address]., [id number] HepBsAg Nonreactive Nonreactive BASHIR FARMER (LUISA) Comment:Testing performed by : [facility], [address] [place] [address]., [id number] Blood 01/30/2024 4:24 PM CDT 01/30/2024 8:38 PM CDT Harish Stoddard MD LAB MICROBIOLOGY - GENERAL ORDERABLES Final Result Performing Organization Address City/State/[facility] Co de Phone Number BASHIR FARMER (LUISA) 1 [facility] [place] [address] from Last 3 Months or Most Recently Relevant to Health Maintenance Insurance [facility] Address: [facility] [address] [place] [address] MEDICARE SOLUTIONS [facility] Care Teams Lumber Bearer Relationship Specialty Start Date End Date No, Physician PCP - General 03/02/24
[2024-08-27 19:48] VITALS: BP 149/94; PULSE 77; RESP 20; TEMP 36.8; O2SAT 100
--- OUTSIDE RECORDS SUMMARY | 2024-08-27 20:36 | XMS_ITS | Clinical Summary ---
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 Testing performed by: [facility], [address] [place] [address]., [id number] Hep B core IgM Nonreactive Nonreactive Liya FARMER (LUISA) Comment: Interpretive Data If HepB Core IgM Ab is reported as Equivocal, a new sample should be drawn in two weeks for testing. Current interpretive data was last revised on 19. Testing performed by: [facility], [address] [place] [address]., [id number] Hep C Ab Nonreactive Nonreactive BASHIR FARMER [...] last revised on 2019. Testing performed by: [facility], [address] [place] [address]., [id number] HepBsAg Nonreactive Nonreactive BASHIR FARMER (LUISA) Comment:Testing performed by : [address] [id number] Blood 01/30/2024 4:24 PM CDT 01/30/2024 8:38 PM CDT Harish Stoddard MD LAB MICROBIOLOGY - GENERAL ORDERABLES Final Result BASHIR FARMER (LUISA) 1 [facility] Department [place] [address] from Last 3 Months or Most Recently Relevant to Health Maintenance Insurance MEDICARE [facility] Care Teams Perioperative Tech Relationship Specialty Start Date End Date No, Physician PCP - General 03/02/24
--- OUTSIDE RECORDS SUMMARY | 2024-08-27 20:36 | XMS_ITS | Referral Summary ---
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 Testing performed by: [facility], [address] [place] [address], [place]., [id number] Hep B core IgM Nonreactive Nonreactive Liya FARMER (LUISA) Comment: Interpretive Data If HepB Core IgM Ab is reported as Equivocal, a new sample should be drawn in two weeks for testing. Current interpretive data was last revised on 19. Testing performed by: [facility], [address] [place] [address], [place]., [id number] Hep C Ab Nonreactive Nonreactive BASHIR FARMER [...] last revised on 2019. Testing performed by: [facility], [address] [place] [address]., [id number] HepBsAg Nonreactive Nonreactive BASHIR FARMER (LUISA) Comment:Testing performed by : [facility], [address] [place] [address]., [id number] Blood 01/30/2024 4:24 PM CDT 01/30/2024 8:38 PM CDT Harish Stoddard MD LAB MICROBIOLOGY - GENERAL ORDERABLES Final Result Performing Organization Address City/State/[facility] Co de Phone Number BASHIR FARMER (LUISA) 1 [facility] Department [place] [address] from Last 3 Months or Most Recently Relevant to Health Maintenance Insurance MEDICARE SOLUTIONS MEDICARE [employer] [facility] Care Teams Credit Interviewer Relationship Specialty Start Date End Date No, Physician PCP - General 03/02/24
[2024-08-27] MEDS: KETOROLAC 30 MG/ML VIAL (*BKC) IM (20:58)
--- NOTE | 2024-08-27 21:10 | ED_ITS ---
HPI - Extremity Injury (Upper) General Chief Complaint: Extremity Injury, Upper Stated Complaint: left wrist injury from a fall Time Seen by Provider: 08/27/24 20:18 History of Present Illness HPI narrative: 44-year-old female presenting to the ER after a ground level mechanical fall yes terday while slipping on ice outside. She fell onto her outstretched left hand and had some pain and swelling in her left forearm near the proximal wrist joint. Took Tylenol at home without any significant relief with the pain or swelling. Presents to the ER today for evaluation. Denies any head trauma or loss of consciousness. No blood thinner use. Was otherwise in her normal state of health. Denies any other injuries. No weakness or neuropathy. Cuprous Chloride Helper strength is intact. Pain with range of motion and palpation of the wrist. Related Data Allergies Allergy/AdvReac Type Severity Reaction Status Date / Time chocolate flavor Allergy Unknown Unknown Verified 08/27/24 19:48 codeine Allergy Unknown Unknown Verified 08/27/24 19:48 Penicillins Allergy Other Verified 08/27/24 19:48 CHOCOLATE Allergy Unknown MOUTH Uncoded 08/27/24 19:48 SWELLS Review of Systems Review of Systems: As reviewed above in HPI [facility] Past Medical History Medical History Multiple sclerosis Surgical History Surgical History History of left oophorectomy Social History Social History Smoking status: Never smoker Alcohol intake: current Substance use type: marijuana Exam Narrative: GENERAL: [Well-appearing, well-nourished, and in no acute distress.] HEAD: [Normocephalic, atraumatic.] EYES: [PERRLA and EOMI.] ENT: Nares clear, no rhinorrhea or epistaxis. Mucous membranes moist. NECK: Supple. CHEST: [Clear to auscultation. No respiratory distress.] HEART: [Regular rate and rhythm]. No murmur heard. [Normal peripheral pulses.] ABDOMEN: [Soft, nondistended], [nontender], [No rigidity or guarding] EXTREMITIES: Swelling over the dorsal and radial aspect of the left wrist, tenderness over the snuffbox but no step-offs deformities. No crepitus. Cuprous Chloride Helper strength 5/5, able to oppose each digit, able to make a thumbs up and okay sign. Pain with passive range of motion of the wrist joint. No elbow pain or swelling. No distal finger joint involvement. SKIN: Warm, dry, no rash. NEURO: [No focal deficits]. Alert and oriented [x3.] PSYCH: [Normal mood and affect.] Course Vital Signs Vital signs: Vital Signs Temperature 36.8 C 08/27/24 19:48 Pulse Rate 77 08/27/24 19:48 Respiratory Rate 20 08/27/24 19:48 Blood Pressure 149/94 H 08/27/24 19:48 Pulse Oximetry 100 08/27/24 19:48 Oxygen Delivery Room Air 08/27/24 19:48 Temperature 36.8 C 08/27/24 19:48 Pulse Rate 77 08/27/24 19:48 Respiratory Rate 20 08/27/24 19:48 Blood Pressure 149/94 H 08/27/24 19:48 Pulse Oximetry 100 08/27/24 19:48 Oxygen Delivery Room Air 08/27/24 19:48 Procedures Orthopedic Splinting/Casting Injury #1: Splinting/Casting Date: 08/27/24 Splinting/Casting Time: 21:05 Side: left Upper Extremity Injury Location: wrist (Distal scaphoid distal radius) Splint: customized in ED (Thumb spica splint) Pre-Procedure Neuro Vascular Exam: normal Post-Procedure Neuro Vascular Exam: normal MDM - Extremity Injury (Upper) MDM Narrative Medical decision making narrative: 44-year-old female presenting after a fall on outstretched left hand yesterday. She has swelling over the dorsal lateral aspect of the upper extremity at the wrist consistent with a potential wrist strain verses wrist fracture versus s caphoid fracture. Multi view wrist x-ray was obtained she was given Toradol for analgesia. She has palpable tenderness in the snuffbox and a thumb spica splint was applied. No fractures identified on the x-ray of the wrist although given the clinical suspicion would recommend orthopedic follow-up in 1 week and maintain splint for comfort in addition to pain control regimen. Patient was comfortable this plan of care and safely discharged. Thumb spica was applied with good neuro vasculature pre and post application. Patient tolerated well and prescriptions for Toradol and Tylenol were sent to her pharmacy. Discharge Plan Discharge Clinical Impression: Acute wrist pain, Fall from ground level Patient Disposition: Home, Self-Care Condition: Stable Instructions: Antibiotic Form, Wrist Injury (ED), Splint Care (ED), Scaphoid Fracture (ED) Additional Instructions: Your x-ray does not show any fracture although there are tiny bones in the wrist that appear aligned but could have an occult fracture underneath. Given her degree of swelling and pain we placed 2 in a splint and recommend orthopedic follow-up in 1 week for repeat imaging studies. We will send you home with pain control medications. Return with any new or worsening concerns otherwise follow-up outpatient. Patient Language: Danish Prescriptions: New ketorolac 10 mg tablet 10 mg PO Q8H PRN (Reason: pain) 5 Days Qty: 20 0RF Rx Instructions: maximum total duration of 5 days from all oral, intranasal, or parenteral formulations acetaminophen [Tylenol Extra Strength] 500 mg tablet 1,000 mg PO TID PRN (Reason: pain) Qty: 30 0RF No Action amoxicillin-pot clavulanate 875-125 mg tablet 1 tablet PO Q12H Qty: 14 0RF lorazepam [Ativan] 0.5 mg tablet 0.5 mg PO BID PRN (Reason: anxiety) Qty: 10 0RF pantoprazole 40 mg tablet,delayed release (DR/EC) 40 mg PO HS 28 Days Qty: 28 0RF metronidazole 500 mg tablet 500 mg PO Q12H Qty: 10 0RF Follow-up/Referrals: Korey Diaz MD [Physician] - 1 Week (Suspect scaphoid fracture, thumb spica applied) UNKNOWN,DOCTOR [Primary Care Provider] - Time of Disposition: 21:10
[2024-08-27 21:25] VITALS: BP 126/82; PULSE 73; RESP 20; TEMP 36.9; O2SAT 100
== END 2024-08-27 21:24 | disposition home or self-care (01) ==
PROVIDERS: Emergency Provider Student in an Organized Health Care Education/Training Program
DX: S69.92XA Unspecified injury of left wrist, hand and finger(s), initial encounter (principal); G35 Multiple sclerosis; Z90.721 Acquired absence of ovaries, unilateral; W00.0XXA Fall on same level due to ice and snow, initial encounter
CPT/HCPCS: 29125; 73110; 99283; J1885

== ENCOUNTER 2024-10-17 12:06 | Emergency (ER) | payer MEDICARE, SELFPAY ==
--- OUTSIDE RECORDS SUMMARY | 2024-10-17 12:09 | XMS_ITS | Referral Summary ---
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 Testing performed by: [facility], [address] [place] [address], [place]., [id number] Hep B core IgM Nonreactive Nonreactive Liya FARMER (LUISA) Comment: Interpretive Data If HepB Core IgM Ab is reported as Equivocal, a new sample should be drawn in two weeks for testing. Current interpretive data was last revised on 19. Testing performed by: [facility], [address] [place] [address], [place]., [id number] Hep C Ab Nonreactive Nonreactive BASHIR FARMER (ULISA) Comment: Interpretive Data Nonreactive: Antibodies to HCV [...] last revised on 2019. Testing performed by: [facility], [address] [place] [address]., [id number] HepBsAg Nonreactive Nonreactive BASHIR FARMER (LUISA) Comment:Testing performed by : [facility], [address] [place] [address]., [id number] Blood 01/30/2024 4:24 PM CDT 01/30/2024 8:38 PM CDT Harish Stoddard MD LAB MICROBIOLOGY - GENERAL ORDERABLES Final Result Performing Organization Address City/State/[facility] Co de Phone Number BASHIR MARLENY (LUISA) 1 [facility] Department [place] [address] from Last 3 Months or Most Recently Relevant to Health Maintenance Insurance [facility] MEDICARE ADVANTAGE [facility] Address: [facility] [address] [place] [address] [facility] MEDICARE ADVANTAGE [facility] MED[facility] Address: [address] [address] [place] [address] [facility] Care Teams Assistant To The Vice President Relationship Specialty Start Date End Date No, Physician PCP - General 03/02/24
--- OUTSIDE RECORDS SUMMARY | 2024-10-17 12:09 | XMS_ITS | Clinical Summary ---
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 Current interpretive data was last revised on 19. Testing performed by: [facility], [address] [place] [address]., [id number] Hep C Ab Nonreactive Nonreactive BASHIR FARMER [...] Testing performed by: [facility], [address] [place] [address]., [id number] HepBsAg Nonreactive Nonreactive BASHIR FARMER (LUISA) Comment:Testing performed by : [address] [address] Blood 01/30/2024 4:24 PM CDT 01/30/2024 8:38 PM CDT Harish Stoddard MD LAB MICROBIOLOGY - GENERAL ORDERABLES Final Result BASHIR FARMER (LUISA) 1 [facility] Department [place] [address] from Last 3 Months or Most Recently Relevant to Health Maintenance Insurance [facility] MEDICARE ADVANTAGE [employer] MEDICARE ADVANTAGE [facility] Care Teams Compressed Air Pile Driver Operator Relationship Specialty Start Date End Date No, Physician PCP - General 03/02/24
[2024-10-17 12:12] VITALS: BP 137/62; PULSE 88; RESP 16; TEMP 36.8; O2SAT 100
--- NOTE | 2024-10-17 12:21 | PC.NURSE ---
patient states that she has history of anxiety and denies taking any medication. patient states that she is having home issues and relationship status changes recently and feels as though her anxiety today is very high and increasing. patient states that she feels jittery and that she feels short of breath while speaking sentences. patient denies drug use, but socially uses alcohol.
--- OUTSIDE RECORDS SUMMARY | 2024-10-17 13:18 | XMS_ITS | Clinical Summary ---
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 Testing performed by: [facility], [address] [place] [address]., [id number] Hep B core IgM Nonreactive Nonreactive Liya FARMER (LUISA) Comment: Interpretive Data If HepB Core IgM Ab is reported as Equivocal, a new sample should be drawn in two weeks for testing. Current interpretive data was last revised on 19. Testing performed by: [facility], [address] [place] [address]., [id number] Hep C Ab Nonreactive Nonreactive BASHIR FARMER [...] last revised on 2019. Testing performed by: [facility], [address] [place] [address]., [address] HepBsAg Nonreactive Nonreactive BASHIR FARMER (LUISA) Comment:Testing performed by : [address] [id number] Blood 01/30/2024 4:24 PM CDT 01/30/2024 8:38 PM CDT Harish Stoddard MD LAB MICROBIOLOGY - GENERAL ORDERABLES Final Result BASHIR FARMER (LUISA) 1 [facility] Department [place] [address] from Last 3 Months or Most Recently Relevant to Health Maintenance Insurance [facility] MEDICARE ADVANTAGE [employer] MEDICARE ADVANTAGE [facility] Care Teams Protozoology Teacher Relationship Specialty Start Date End Date No, Physician PCP - General 03/02/24
--- OUTSIDE RECORDS SUMMARY | 2024-10-17 13:18 | XMS_ITS | Referral Summary ---
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 Testing performed by: [facility], [address] [place] [address], [place]., [address] Hep B core IgM Nonreactive Nonreactive Liya FARMER (LUISA) Comment: Interpretive Data If HepB Core IgM Ab is reported as Equivocal, a new sample should be drawn in two weeks for testing. Current interpretive data was last revised on 19. Testing performed by: [facility], [address] [place] [address], [place]., [address] Hep C Ab Nonreactive Nonreactive BASHIR FARMER [...] last revised on 2019. Testing performed by: [facility], [address] [place] [address]., [id number] HepBsAg Nonreactive Nonreactive BASHIR FARMER (LUISA) Comment:Testing performed by : [facility], [address] [place] [address]., [id number] Blood 01/30/2024 4:24 PM CDT 01/30/2024 8:38 PM CDT Harish Stoddard MD LAB MICROBIOLOGY - GENERAL ORDERABLES Final Result Performing Organization Address City/State/[facility] Co de Phone Number BASHIR MARLENY (LUISA) 1 [facility] Department [place] [address] from Last 3 Months or Most Recently Relevant to Health Maintenance Insurance [facility] MEDICARE ADVANTAGE [facility] MEDICARE ADVANTAGE [facility] Care Teams Home Care Liaison Relationship Specialty Start Date End Date No, Physician PCP - General 03/02/24
--- NOTE | 2024-10-17 13:24 | ED.GENADULT ---
HPI - General Adult General Chief complaint: Anxiety Stated complaint: Anxiety Time Seen by Provider: 10/17/24 13:08 History of Present Illness HPI narrative: This is a 44-year-old female presenting ED with chief complaint of anxiety. Patient says her symptoms started earlier this morning. She feels shaky and feels like something is wrong. She denies chest pain difficulty breathing, nausea vomiting diarrhea or abdominal pain. Related Data Allergies Allergy/AdvReac Type Severity Reaction Status Date / Time chocolate flavor Allergy Unknown Unknown Verified 10/17/24 12:07 codeine Allergy Unknown Unknown Verified 10/17/24 12:07 Penicillins Allergy Other Verified 10/17/24 12:07 CHOCOLATE Allergy Unknown MOUTH Uncoded 10/17/24 12:07 SWELLS PMFSH Past Medical History Medical History Multiple sclerosis Surgical History Surgical History History of left oophorectomy Social History Social History Smoking status: Never smoker Alcohol intake: current Substance use type: marijuana Exam Narrative: APPEARANCE: No apparent distress. Head: atraumatic. EYES: EOMI, NOSE: Atraumatic NECK: Trachea midline RESPIRATORY: No increased rate of breathing CTAB CARDIOVASCULAR: RRR, no peripheral edema ABDOMINAL: Non-distended soft nontender MUSCULOSKELETAl: No obvious deformities NEURO: Alert. Moving 4/4 extremities SKIN:: Warm, dry. Normal color PSYCHIATRIC: Normal affect Course Vital Signs Vital signs: Vital Signs Temperature 98.2 F 10/17/24 12:12 Pulse Rate 88 10/17/24 12:12 Respiratory Rate 16 10/17/24 12:12 Blood Pressure 137/62 10/17/24 12:12 Pulse Oximetry 100 10/17/24 12:12 Temperature 98.2 F 10/17/24 12:12 Pulse Rate 88 10/17/24 12:12 Respiratory Rate 16 10/17/24 12:12 Blood Pressure 137/62 10/17/24 12:12 Pulse Oximetry 100 10/17/24 12:12 Medical Decision Making MDM Narrative Medical decision making narrative: -Course: 44-year-old female history of anxiety presenting for anxiety attack. Vital signs are stable. She appears anxious but is denying any other complaints. Patient given Valium. Discharged with return precautions. Vital Signs Vital Signs: Vital Signs Temperature 98.2 F 10/17/24 12:12 Pulse Rate 88 10/17/24 12:12 Respiratory Rate 16 10/17/24 12:12 Blood Pressure 137/62 10/17/24 12:12 Pulse Oximetry 100 10/17/24 12:12 Temperature 98.2 F 10/17/24 12:12 Pulse Rate 88 10/17/24 12:12 Respiratory Rate 16 10/17/24 12:12 Blood Pressure 137/62 10/17/24 12:12 Pulse Oximetry 100 10/17/24 12:12 Discharge Plan Discharge Clinical Impression: Anxiety Patient Disposition: Home Condition: Stable Instructions: Antibiotic Form, Anxiety (ED) Additional Instructions: When he was seen emergency department for anxiety. Please follow-up with the primary care physician listed below. If you develop any new or worsening symptoms please return to the ED for re-evaluation. Patient Language: Wallisian Prescriptions: No Action amoxicillin-pot clavulanate 875-125 mg tablet 1 tablet PO Q12H Qty: 14 0RF lorazepam [Ativan] 0.5 mg tablet 0.5 mg PO BID PRN (Reason: anxiety) Qty: 10 0RF pantoprazole 40 mg tablet,delayed release (DR/EC) 40 mg PO HS 28 Days Qty: 28 0RF metronidazole 500 mg tablet 500 mg PO Q12H Qty: 10 0RF ketorolac 10 mg tablet 10 mg PO Q8H PRN (Reason: pain) 5 Days Qty: 20 0RF Rx Instructions: maximum total duration of 5 days from all oral, intranasal, or parenteral formulations acetaminophen [Tylenol Extra Strength] 500 mg tablet 1,000 mg PO TID PRN (Reason: pain) Qty: 30 0RF Follow-up/Referrals: PHYSICIAN,RESIDENTIAL INTERIOR DESIGNER [Primary Care Provider] - Vashti Hamilton DO [Physician] - 1 Week (Establish PCP)
[2024-10-17] MEDS: diazePAM INJ (*CRX) 10 MG/2 ML SYRINGE 5 MG IM (13:35)
== END 2024-10-17 13:45 | disposition home or self-care (01) ==
PROVIDERS: Emergency Provider Emergency Medicine
DX: F41.9 Anxiety disorder, unspecified (principal); G35 Multiple sclerosis; Z90.721 Acquired absence of ovaries, unilateral
CPT/HCPCS: 96372; 99283; J3360